=== PATIENT | male | born 1965 | race Caucasian/White ===

== ENCOUNTER 2024-12-25 05:19 | Day surgery (SDC) | payer OTHER ==
[2024-12-20 12:59] VITALS: BP 150/90; BP 160/98
[~2024-12-25] VITALS: Ht 180.3 cm; Wt 81.6 kg
[~2024-12-25 05:19] MED LIST: LOSARTAN POTASS25 MG PO; PROTONIX20 MG PO
[2024-12-25] MEDS ORDERED: CEFTRIAXONE SODIUM 2,000 MG VIAL ONE (06:34)
[2024-12-25] MEDS ORDERED: METRONIDAZOLE/SODIUM CHLORIDE 500 MG/100 ML PIGGYBACK IV ONE (06:34)
[2024-12-25] MEDS ORDERED: BUPIVACAINE HCL/MPF 0.5% 30ML VIAL ONE (07:01)
[2024-12-25] MEDS ORDERED: HEMOSTATIC MATRIX 1 KIT KIT TOP ONE (07:02)
[2024-12-25] MEDS ORDERED: DIBUCAINE 30 GM TUBE ONE (07:02)
[2024-12-25] MEDS ORDERED: POVIDONE-IODINE 118 ML BOTT TOP ONE (07:02)
[2024-12-25] MEDS ORDERED: LIDOCAINE HCL 1%/EPINEPHRINE 20ML VIAL IJ ONE (07:02)
[2024-12-25] MEDS ORDERED: HYDROGEN PEROXIDE 473 ML BOTTLE TOP ONE (07:41)
[2024-12-25] MEDS ORDERED: LEVOFLOXACIN500 MG PO (08:20)
[2024-12-25] MEDS ORDERED: PERCOCET 5-3251 EACH PO (08:21)
[2024-12-25] MEDS ORDERED: METRONIDAZOLE500 MG PO (08:21)
[2024-12-25] MEDS ORDERED: RECTICARE30 GM TOP (08:22)
== END 2024-12-25 13:20 | disposition home or self-care (01) ==
LOC: CIR.AMB 05:19
PROVIDERS: ATTEND Surgery
DX: K60.321 Anal fistula, complex, initial (principal); Z88.6 Allergy status to analgesic agent; K50.913 Crohn's disease, unspecified, with fistula